=== PATIENT | female | born 1985 | race Hispanic/Latino ===

== ENCOUNTER 2019-01-25 10:00 | Observation (INO) | payer OTHER ==
[2019-01-23 15:59] LABS: BASOPHILS % 0.3 % (0.0-1.0); EOSINOPHILS # (AUTO) 0.1 (0.0-0.4); EOSINOPHILS % 2.1 % (0.0-6.0); HEMATOCRIT 34.6 % (34.2-44.1); HEMOGLOBIN 10.7 g/dL (12.0-16.0); LYMPHOCYTES # (AUTO) 1.6 (1.0-3.2); LYMPHOCYTES % 27.6 % (18.0-39.1); MEAN CORPUSCULAR HEMOGLOBIN 23.5 pg (28-32); MEAN CORPUSCULAR HGB CONC 30.9 g/dL (31-35); MEAN CORPUSCULAR VOLUME 75.9 fL (81-99); MONOCYTES # (AUTO) 0.5 (0.2-0.8); MONOCYTES % 8.1 % (4.4-11.3); NEUTROPHILS # (AUTO) 3.6 (2.1-6.9); NEUTROPHILS % 61.7 % (38.7-80.0); PLATELET COUNT 218 x10e3/uL (140-360); RED BLOOD COUNT 4.56 x10e6/uL (3.6-5.1); RED CELL DISTRIBUTION WIDTH 17.3 % (11.7-14.4)
[2019-01-23 16:16] LABS: ALANINE AMINOTRANSFERASE 49 IU/L (0-55); ALBUMIN 3.6 g/dL (3.5-5.0); ALBUMIN/GLOBULIN RATIO 1.1 (0.8-2.0); ALKALINE PHOSPHATASE 84 IU/L (40-150); ANION GAP 10.9 mmol/L (8-16); BLOOD UREA NITROGEN 9 mg/dL (7-26); BUN/CREATININE RATIO 13 (6-25); CARBON DIOXIDE 28 mmol/L (22-29); CHLORIDE 103 mmol/L (98-107); EST GLOMERULAR FILTRATION RATE > 60 ML/MIN (60-); GLUCOSE 118 mg/dL (74-118); POTASSIUM 3.9 mmol/L (3.5-5.1); SODIUM 138 mmol/L (136-145)
[~2019-01-25] VITALS: Ht 162.6 cm; Wt 101.3 kg
[~2019-01-25 10:00] MED LIST: ATORVASTATIN CA20 MG PO; BACITRACIN 50,000 UNIT VIAL ONE; BUPIVACAINE 0.5%/EPI 30 ML SDV INJ ONE; GELATIN SPONGE 12-7MM ONE; LEVOTHYROXINE150 MCG PO; THROMBIN FOR SOLN 5,000 UNIT VIAL ONE
--- OUTSIDE RECORDS SUMMARY | 2019-01-25 10:05 | XMS REPORT ---
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 Allergies, Adverse Reactions, Alerts This patient has no known allergies or adverse reactions. Medications This patient has no known medications. Encounters Start Date/Time End Date/Time Encounter Type Admission Type Attending Clinicians Care Facility Care Department Encounter ID 2017-06-27 07:23:00 2017-06-27 07:23:00 Outpatient C CRISTOPHER NICHOLAS [facility] [id number] Results Test Description Test Time Test Comments Text Results Atomic Results Result Comments Hali-Rapid Urea (H.Pylori) 2017-06-27 16:43:00 Specimen: BiopsyCollected: 06/27/2017 09:42 Status: Final Last Updated: 06/27/2017 16:43 H. pylori (1 hour) (Final) (Final) Rapid urease negative H. pylori (4 hours) (Final) (Final) Rapid urease negative BHCG, Urine, Qualitative 2017-06-27 09:42:00 Preg Qual [Ur] (test code=HUHCG) Negative Negative US ABDOMEN COMPLETECLINICAL INDICATION: Z80.0 FAMILIY HISTORY OF MALIGNANT NEOPLASM OF DIGESTIVE ORGANSTECHNIQUE:Real-time and doppler ultrasound evaluation of the abdomen was performed on the Edfa3ly .FINDINGS:Comparison study: none.The liver is normal in contour and exhibits normal echotexture measuring 14.3 cm. There are no hepatic masses. The biliary tree, hepatic veins and portal venous system are normal. The common bile duct measures 1.9 mm.The gallbladder is unremarkable without gallstones or sludge. The spleen is normal in size and contour. It measures 9.7 cm.The pancreas is normal. Right and left kidneys are normal in size and echotexture. There are no masses or hydronephrosis. The right kidney measures 12.7 x 4.6 x 4.8 cm. The left kidney measures 13.4 x 5.0 x 5.5 cm. Visualized IVC and aorta are unremarkable.No ascites is noted in the abdomen.IMPRESSION:Unremarkable abdominal ultrasound.
--- OUTSIDE RECORDS SUMMARY | 2019-01-25 10:05 | XMS REPORT | Summary of Care ---
Author Author [facility] [place] Organization [facility] Address Unknown Phone Unavailable Encounter HQ Lluvia_jesusita(FIN) [id number] Date(s): 07/03/18 - 07/03/18 [facility] [place] 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 Vital Signs Most recent to 1 oldest [Reference Range]: Height 162.56 cm (07/03/18 1:33 PM) Temperature Oral 98.1 DegF [96.4-99.1 DegF] (07/03/18 1:33 PM) Blood Pressure 146/84 mmHg [90-140/60-90 mmHg] *HI* (07/03/18 1:33 PM) Peripheral Pulse 81 bpm Rate [60-100 bpm] (07/03/18 1:33 PM) Weight 102.33 kg (07/03/18 1:33 PM) Body Mass Index 38.72 m2 (07/03/18 1:33 PM) Problem List Condition Effective Dates Status Health Status Informant H/O: Resolved hypothyroidism(Confi rmed) Morbid Active obesity(Confirmed) Allergies, Adverse Reactions, Alerts No Known Medication Allergies Medications levothyroxine 125 mcg (0.125 mg) oral tablet 125 microgram=1 tab, PO, Daily, 0 Refill(s) Start Date: 07/03/18 Status: Ordered Results Most recent to 1 oldest [Reference Range]: eGFR 114 mL/min/1.73m2 1 *NA* (07/03/18 2:52 PM) POC BUN [7-22 mg/dL] 11 mg/dL (07/03/18 2:52 PM) POC Ion Ca 1.12 mMol/L [1.05-1.25 mMol/L] (07/03/18 2:52 PM) POC Chloride [95-109 101 mEq/L mEq/L] (07/03/18 2:52 PM) POC Carbon Dioxide 24 mEq/dL [24-32 mEq/dL] (07/03/18 2:52 PM) POC Creatinine 0.7 mg/dL [0.5-1.4 mg/dL] (07/03/18 2:52 PM) POC Glucose [70-99 93 mg/dL mg/dL] (07/03/18 2:52 PM) POC Hematocrit 36.0 % [36.0-48.0 %] (07/03/18 2:52 PM) POC Hemoglobin 12.2 g/dL [12.0-16.0 g/dL] (07/03/18 2:52 PM) POC Potassium 4.0 mEq/L [3.5-5.1 mEq/L] (07/03/18 2:52 PM) POC Sodium [135-145 142 mEq/L mEq/L] (07/03/18 2:52 PM) POC AGAP [10.0-20.0 22.0 mEq/L mEq/L] *HI* (07/03/18 2:52 PM) 1Result Comment: The eGFR is calculated using the CKD-EPI formula. In most young, healthy individuals the eGFR will be >90 mL/min/1.73m2. The eGFR declines with age. An eGFR of 60-89 may be normal in some populations, particularly the elderly, for whom the CKD-EPI formula has not been extensively validated. Use of the eGFR is not recommended in the following populations: Individuals with unstable creatinine concentrations, including patients and those with serious co-morbid conditions. Patients with extremes in muscle mass or diet. The data above are obtained from the National Kidney Disease Education Program ( NKDEP) which additionally recommends that when the eGFR is used in patients with extremes of body mass index for purposes of drug dosing, the eGFR should be mul tiplied by the estimated BMI. Immunizations No data available for this section Procedures No data available for this section Social History Social History Type Response Smoking Status Never smoker; Exposure to Tobacco Smoke None; Cigarette Smoking Last 365 Days No; Reg Smoking Cessation Counseling No entered on: 07/03/18 Assessment and Plan No data available for this section
--- OUTSIDE RECORDS SUMMARY | 2019-01-25 10:05 | XMS REPORT | Continuity of Care Document ---
Author Author [facility] Interface Address Unknown Phone Unavailable Problems Problem Status Onset Date Classification Date Reported Comments Source H/O: hypothyroidism Resolved Problem 01/21/2019 [facility] Morbid obesity Active Problem 01/21/2019 [facility] Medications Medication Details Route Status Patient Instructions Ordering Provider Order Date Source levothyroxine 125 mcg (0.125 mg) oral tablet 125 microgram=1 tab, PO, Daily, 0 Refill(s) Active 07/03/2018 [facility] Allergies, Adverse Reactions, Alerts Substance Category Reaction Severity Reaction type Status Date Reported Comments Source No Known Medication Allergies Assertion Drug allergy [facility] Immunizations Immunization Date Given Site Status Last Updated Comments Source Results Order Name Results Value Reference Range Date Interpretation Comments Source CHEM PANEL eGFR 114 mL/min/1.73m2 07/03/2018 Result Comment: The eGFR is calculated using the [...] from the National Kidney Disease Education Program (NKDEP) which additionally recommends that when the eGFR is used in patients with extremes of body mass index for purposes of drug dosing, the eGFR should be multiplied by the estimated BMI. [facility] CHEM PANEL POC Sodium 142 meq/L 135 - 145 07/03/2018 [facility] CHEM PANEL POC Potassium 4.0 meq/L 3.5 - 5.1 07/03/2018 [facility] CHEM PANEL POC Chloride 101 meq/L 95 - 109 07/03/2018 [facility] CHEM PANEL POC Carbon Dioxide 24 mEq/dL 24 - 32 07/03/2018 [facility] CHEM PANEL POC Hemoglobin 12.2 g/dL 12.0 - 16.0 07/03/2018 [facility] CHEM PANEL POC BUN 11 mg/dL 7 - 22 07/03/2018 [facility] CHEM PANEL POC Creatinine 0.7 mg/dL 0.5 - 1.4 07/03/2018 [facility] CHEM PANEL POC Glucose 93 mg/dL 70 - 99 07/03/2018 [facility] CHEM PANEL POC Ion Ca 1.12 mMol/L 1.05 - 1.25 07/03/2018 [facility] CHEM PANEL POC AGAP 22.0 meq/L 10.0 - 20.0 07/03/2018 [facility] CHEM PANEL POC Hematocrit 36.0 % 36.0 - 48.0 07/03/2018 [facility] Chest 2 views DX Chest 2 views DX Study: Chest 2 views DX Clinical Indication: - Chest pain Comparison: None FINDINGS: The cardiac silhouette is normal in size. The lungs are clear and without consolidation or congestion. Mild left basilar scarring is seen. No pleural effusion or pneumothorax is seen. The osseous structures are unremarkable. IMPRESSION: No acute cardiopulmonary disease. SL: [id number] 07/03/2018 - - Read by: John Ardon MD Dictated Date/time: 07/03/18 14:38 Electronically Signed by: John Ardon MD 07/03/18 14:39 FINAL REPORT [facility] Vital Signs Vital Sign Value Date Comments Source Heart Rate 81 07/03/2018 [facility] Height 162.56 cm 07/03/2018 [facility] BMI Calculated 38.72 07/03/2018 [facility] Weight 102.33 07/03/2018 [facility] Temperature Oral (F) 98.1 F 07/03/2018 [facility] Systolic (mm Hg) 146 07/03/2018 [facility] Diastolic (mm Hg) 84 07/03/2018 [facility] Encounters Location Location Details Encounter Type Encounter Number Reason For Visit Attending Provider ADM Date DC Date Status Source Outpatient [id number] VIDYA BUNCH 07/03/2018 Active [facility] Out[facility] [id number] Vidya Bunch 07/03/2018 07/04/2018 [facility] Procedures Procedure Code Date Perfomer Comments Source
[2019-01-25] MEDS ORDERED: CEFAZOLIN SOD 1 GM/NS 50ML 100 ML IV ONE (10:59)
[2019-01-25] MEDS ORDERED: SODIUM CHLORIDE 0.9% 100 ML ONE ×2 (12:11→13:36)
[2019-01-25] MEDS ORDERED: BUPIVACAINE 0.25% 30ML SDV INJ ONE (13:35)
[2019-01-25] MEDS ORDERED: BUPIVACAINE LIPOSOME/PF 266 MG/20 ML IJ ONE (13:36)
[2019-01-25] MEDS ORDERED: SODIUM CHLORIDE 0.9% 250ML 250 ML IV NR (15:15)
[2019-01-25 15:18] LABS: HEMATOCRIT 31.5 % (34.2-44.1); HEMOGLOBIN 9.8 g/dL (12.0-16.0)
[2019-01-25] MEDS ORDERED: ACETAMINOPHEN 325 MG TAB PO PRN (16:00)
[2019-01-25] MEDS ORDERED: ONDANSETRON HCL INJ 2MG/ML 2ML 2 MG/ML VIAL IV PRN (16:00)
[2019-01-25] MEDS ORDERED: ESTRADIOL 0.1MG PATCH (ONCE WEEKLY) TOP SCH (16:00)
[2019-01-25] MEDS ORDERED: DIPHENHYDRAMINE HCL 25 MG CAP PO PRN (16:00)
--- NOTE | 2019-01-25 16:56 | NUR ---
RECEIVED REPORT FROM WILLIAM IN PACU. AWAITING FOR PT TO ARRIVE TO FLOOR
[2019-01-25] MEDS ORDERED: GLYCOPYRROLATE INJ 1MG/ 5 ML SYR ONE (16:59)
[2019-01-25] MEDS ORDERED: DEXAMETHASONE SOD PHOS INJ 4 MG/ML VIAL ONE (16:59)
[2019-01-25] MEDS ORDERED: LIDOCAINE HCL 2% LOCAL INJ 5 ML SDV VIAL INJ ONE (16:59)
[2019-01-25] MEDS ORDERED: NEOSTIGMINE 5 MG/5ML SYR ONE (16:59)
[2019-01-25] MEDS ORDERED: ROCURONIUM BROMIDE 10 MG/ML 5ML VIAL ONE (16:59)
[2019-01-25] MEDS ORDERED: ACETAMINOPHEN 1000 MG/100 ML IV ONE (16:59)
[2019-01-25] MEDS ORDERED: PROPOFOL IV EMULSION 10 MG/ML 20 ML VIAL ONE (16:59)
[2019-01-25] MEDS ORDERED: SEVOFLURANE INHAL SOLN 250 ML PEN BTL ONE (16:59)
[2019-01-25] MEDS ORDERED: ONDANSETRON HCL INJ 2MG/ML 2ML 2 MG/ML VIAL ONE (16:59)
[2019-01-25 17:20] VITALS: BP 108/54
--- NOTE | 2019-01-25 17:20 | NUR ---
PT RESTING IN BED AA0X3. PT C/O PAIN TO THE LOWER ABD . 6.10 PRN MED WILL BE GIVEN. ABD SITE DRESSING IS CLEAN AND DRY SAMPSON BAG ATTACHED TO LEG DRAINING BLOODY OUTPUT PLACED PT ON MESH PANTIES AND FEMALE PADS FOR LEAKAGE OF BLOOD (MINIMAL IN AMOUNT) PT VOIDED INTO TOILET BLOODY URINE PT HAS AN IV TO THE RIGHT HAND WITH LR AT 125CCHR SITE IS CLEAN AND DRY IV TO THE LEFT AC IS PATENT AND DRY PT IS ON RA TOLERATING WELL NO SOB NOTED SED AND COMPRESSION STOCKING ON WILL CONTINUE TO MONITOR PT CLOSELY, SIDE RAILSX3 ,BED WHEELS LOCKED, CALL LIGHT IS WITHIN EASY REACH INSTRUCTED TO CALL FOR ASSISTANCE IF NEEDED FAMILY IS AT BEDSIDE
[2019-01-25] MEDS: LACTATED RINGER'S 1,000 ML IV SCH ×2 (17:28→23:52)
[2019-01-25 17:29] VITALS: BP 108/54
[2019-01-25 17:30] VITALS: BP 108/54
[2019-01-25] MEDS ORDERED: FENTANYL CITRATE/PF 100MCG/2 ML INJ ONE (17:49)
[2019-01-25] MEDS ORDERED: MIDAZOLAM HCL 2 MG/2 ML VIAL ONE (17:49)
[2019-01-25] MEDS: KETOROLAC TROMETHAMINE 30 MG/ML VIAL IM PRN (18:04)
--- NOTE | 2019-01-25 19:07 | NUR ---
RECEIVED PT RESTING IN BED WITH NO S/S OF DISTRESS.RESPIRATIONS EVEN/NON LABORED.PT AAO X 3.DRESSING TO LOWER ABDOMEN C/D/I.PT HAS A SAMPSON CATHETER IN UTERUS ATTACHED TO A LEG BAG DRAINING SANGUINEOUS OUTPUT.PT HAS ON MESH PANTIES WITH FEMININE PADS,MINIMAL BLOOD NOTED ON FEMININE PADS.PT DENIES ANY NEEDS AT THIS TIME.FAMILY AT BEDSIDE.INSTRUCTED PT TO CALL FOR ASSISTANCE NEEDED BY USING CALL LIGHT.PT VERBALIZED UNDERSTANDING.CALL LIGHT WITHIN EASY REACH.
[2019-01-25 20:00] VITALS: BP 114/67
[2019-01-26] VITALS: BP 114/60
[2019-01-26] MEDS: KETOROLAC TROMETHAMINE 30 MG/ML VIAL IM PRN (00:07)
--- NOTE | 2019-01-26 01:20 | Operative Report ---
DATE OF PROCEDURE: SURGEON: Kelin Cabrera MD PREOPERATIVE DIAGNOSES: Fibroid uterus, pelvic pain. POSTOPERATIVE DIAGNOSIS: Fibroid uterus, pelvic pain. PROCEDURE: Abdominal myomectomies. COMPLICATIONS: None. ESTIMATED BLOOD LOSS: 800 mL. DESCRIPTION OF PROCEDURE: The patient was taken to the OR. General anesthesia was induced. She was prepped and draped in a sterile fashion, placed in supine position with an indwelling Elena catheter was placed inside the bladder for drainage. A skin incision was made with a scalpel. Subcutaneous tissue was dissected with the Bovie and the rectus fascia was opened with the midline and the incision was extended both sides using curved Barraza scissors. Upper and lobe flaps of the fascia were dissected overlying the muscles using both sharp and blunt dissection. two fingers. Uterus was delivered outside the wound with the following findings, multiple uterine fibroids at the fundus, cervical fibroids anteriorly. Both tubes and ovaries looked normal. Uterus is enlarged about 14 weeks size. Fundal myomectomy was performed by injecting diluted vasopressin to 1 one ampule measures 100 mL of saline injected around the myoma. Transverse uterine incision was made with cautery. Fibroid was held with a single-tooth towel clips and dissected off its bed using the Metzenbaum scissors and removed. The fibroid bed was approximated using Vicryl 0 interrupted sutures and the serosa was approximated using Prolene 3-0 stitch. The same was repeated on several of the uterine fibroids and the cervical lower segment fibroid was removed in the same way and the uterine cavity was intubated and checked and showed small fibroids of about 2-3 cm, which were removed and shaved off the uterine cavity. The fibroid beds were also closed using Vicryl 0 stitch. Following this, hemostasis was adequate and FloSeal was applied on the incisions and incisions were covered with Interceed. Suction irrigation of peritoneal cavity with warm saline. Following this, abdomen was closed. The rectus fascia was approximated with PDS. Subcutaneous fat was approximated with Vicryl 2-0 and jean were applied to the skin. Following this, the cervical dilatation was performed with the dilators. After putting the patient's legs on Stirrups, cervix was dilated to Hegar's 8, Elena catheter size 12 was placed inside the uterus after excising the tip of the Elena catheter and the balloon was inflated with 10 mL of saline and secured to her upper thigh to secure hemostasis as well as prevent adhesion between the anterior and posterior bar of the uterus. The patient tolerated the procedure well. Laps and needle counts were correct x2 at the end of procedure. Also, the SCD was applied and ROGER hose as well as the patient will be sent home on ROGER hose and SCDs. Also, diluted Exparel was injected beneath the rectus muscle and peritoneal wall to achieve analgesia. Kelin Cabrera MD DD/CIARRA /[id number]
[2019-01-26] MEDS: LACTATED RINGER'S 1,000 ML IV SCH ×2 (02:07→07:52)
[2019-01-26] MEDS: HYDROCODONE/APAP 5MG-325MG TAB PO PRN ×3 (02:15→11:52)
--- NOTE | 2019-01-26 02:15 | NUR ---
ASSISTED PT TO BATHROOM,PT VOIDED AND ASSISTED PT BACK TO BED. PT C/O PAIN TO LOWER ABDOMEN PRN PAIN MEDICATION GIVEN PER OCT.BED IN LOWEST/LOCKED POSITION.MOTHER AT BEDSIDE.CALL LIGHT WITHIN EASY REACH.
[2019-01-26 04:00] VITALS: BP 107/66
[2019-01-26 07:00] VITALS: BP 105/58
--- NOTE | 2019-01-26 07:17 | NUR ---
REPORT GIVEN TO ONCOMING NURSE,WALKING ROUNDS DONE.PT RESTING IN BED WITH NO S/S OF DISTRESS
[2019-01-26 08:20] VITALS: BP 105/58
--- NOTE | 2019-01-26 09:22 | NUR ---
Dr. Cabrera visited and the pt. is to discharge home this afternoon. The iv fluids and tele was ordered dc and was completed.
[2019-01-26 12:41] VITALS: BP 112/57
--- NOTE | 2019-01-26 14:15 | NUR ---
The pt. has been discharged home in stable condition post instructions for draining and recording drainage. She was provided extra Reginaldo hose and diapers. The prescription was inadvertently left in the chart and the pt. was contacted and will send her brother back to retrieve the script.
== END 2019-01-26 14:14 | disposition home or self-care (01) ==
LOC: OR 10:00 → PACU V 15:57 → MED/SURG 17:08
PROVIDERS: ADMIT Obstetrics & Gynecology; ATTEND Obstetrics & Gynecology
DX: D21.9 Benign neoplasm of connective and other soft tissue, unspecified (principal); N94.6 Dysmenorrhea, unspecified; N92.6 Irregular menstruation, unspecified; Z01.812 Encounter for preprocedural laboratory examination; E03.9 Hypothyroidism, unspecified; K21.9 Gastro-esophageal reflux disease without esophagitis
CPT/HCPCS: 36415 ×2; 58140; 80053; 84702; 85014; 85018; 85025; 86850; 86900; 86920; 88307; C9290; G0378 ×2; J0131; J0690; J1100; J1885 ×2; J2001; J2250; J2405; J2704; J3490; J7050; J7121 ×2